=== PATIENT | female | born 1985 | race African-American/Black ===

== ENCOUNTER 2017-02-03 00:21 | Emergency (ER) | payer MEDICAID ==
[~2017-02-03] VITALS: Ht 167.6 cm; Wt 73.0 kg
[2017-02-03 00:30] VITALS: BP 124/81
== END 2017-02-03 05:40 | disposition home or self-care (01) ==
LOC: ER 00:21
DX: S50.01XA Contusion of right elbow, initial encounter (principal); F17.200 Nicotine dependence, unspecified, uncomplicated; W19.XXXA Unspecified fall, initial encounter; Y93.01 Activity, walking, marching and hiking; Y92.89 Other specified places as the place of occurrence of the external cause; Y99.8 Other external cause status
CPT/HCPCS: 73080; 99284; A4565